=== PATIENT | male | born 2000 | race Hispanic/Latino ===

== ENCOUNTER 2023-03-02 18:11 | Emergency (ER) | payer OTHER ==
[2023-03-02] MEDS ORDERED: Ketorolac Tromethamine 30 MG/ML VIAL ONE (20:25)
== END 2023-03-02 21:06 | disposition home or self-care (01) ==
LOC: ERS 18:11
DX: S62.316A Displaced fracture of base of fifth metacarpal bone, right hand, initial encounter for closed fracture (principal); V18.0XXA Pedal cycle driver injured in noncollision transport accident in nontraffic accident, initial encounter
CPT/HCPCS: 29125; 96372; J1885